=== PATIENT | female | born 1960 | race Caucasian/White ===

== ENCOUNTER 2023-09-26 08:03 | Outpatient (AMB) | payer BC, SELFPAY ==
--- OUTSIDE RECORDS SUMMARY | 2023-09-26 08:05 | XMS_ITS | Continuity of Care Document ---
Author Name Unknown Organization [facility] Address [address] [place] [address]- Care Team Providers Care Lead Generation Marketing Manager Name Role Phone Mckenzie Lr DO Primary Care Physician [phone] Encounter 08/07/20 - 08/17/20 [facility] [address] [place] [address]- Discharge Disposition: GOALS MET Allergies, Adverse Reactions, Alerts Substance Reaction Severity Status codeine Active penicillin Active traMADol Tramadol Active nitroglycerin 1 Active 1causes bradycardia Medications acetaminophen 325 mg oral tablet 650 mg, By Mouth, Every 6 hours, May take OTC, follow directions on bottle, not to exceed 4000 mg/day, Refills 0, Maintenance, 08/06/20 7:11:00 EST, Partial fill upon patient request if the prescription is for a schedule II opioid drug. Start Date: 08/06/20 Status: Ordered Aspirin Tablet 325 mg, By Mouth, 2 times a day, Refills 0, Maintenance, 02/20/20 7:15:00 EDT Start Date: 02/20/20 Status: Ordered celecoxib 200 mg oral capsule 1 capsule = 200 mg, By Mouth, Daily, 0 Refills, Maintenance, 02/20/20 7:16:00 EDT, Capsule Start Date: 02/20/20 Status: Ordered Colace Capsule 100 mg, 1, capsule, By Mouth, 2 times a day, Refills 0, Maintenance, 02/20/20 7:16:00 EDT Start Date: 02/20/20 Status: Ordered Lorazepam = 1 mg, By Mouth, Daily at bedtime, PRN Sleep, 0 Refills, Maintenance, 01/26/16 12:51:39 Start Date: 01/26/16 Status: Ordered Maalox Plus Liquid 30 mL, By Mouth, Every 4 hours, PRN Other, Heartburn, 0 Refills, Maintenance, 02/21/20 9:25:00 EDT,Suspension Start Date: 02/21/20 Status: Ordered Milk of Magnesia Liquid 30 mL, By Mouth, Daily, PRN Constipation, 0 Refills, Maintenance, 02/20/20 7:16:00 EDT, Suspension Start Date: 02/20/20 Status: Ordered MiraLax Powder 1 pack/packet = 17 Gm, By Mouth, Daily, 0 Refills, Maintenance, 02/20/20 7:16:00 EDT, Powder Start Date: 02/20/20 Status: Ordered ondansetron 4 mg oral tablet 1 tablet = 4 mg, By Mouth, Every 6 hours, PRN Nausea & Vomiting, # 20 tablet, 0 Refills, Maintenance, 02/20/20 7:10:00 EDT, Tablet, [facility], 162, cm, 02/20/20 4:17:00 EDT, Height, 82.8, kg, 02/19/20 7:08:00 EDT, Dry Weight Start Date: 02/20/20 Status: Ordered pantoprazole 40 mg oral delayed release tablet = 40 mg, By Mouth, Daily, 0 Refills, Maintenance, 02/20/20 7:16:00 EDT, EC Tablet Start Date: 02/20/20 Status: Ordered senna 187 mg oral tablet 1 tablet = 8.6 mg, By Mouth, Daily at bedtime, 0 Refills, Maintenance, 02/20/20 7:16:00 EDT, Tablet Start Date: 02/20/20 Status: Ordered
--- OUTSIDE RECORDS SUMMARY | 2023-09-26 08:05 | XMS_ITS | Continuity of Care Document ---
Author Name Unknown Organization [facility] ter Address [address] [place] [address]- Care Team Providers Care Diagnostic Cardiac Sonographer Name Role Phone Mckenzie Lr DO Primary Care Physician Encounter [facility] [place] Date(s): 07/24/20 - 08/29/[address] [address]- Attending Physician: Karan Tay MD Admitting Physician: Karan Tay MD Referring Physician: Karan Tay MD Allergies, Adverse Reactions, Alerts Substance Reaction Severity [...] 0 Refills, Maintenance, 02/20/20 7:10:00 EDT, Tablet, [facility], 162, cm, 02/20/20 4:17:00 [...]
--- OUTSIDE RECORDS SUMMARY | 2023-09-26 08:05 | XMS_ITS | Continuity of Care Document ---
Author Name Unknown Organization [facility] Address [address] [place] [address]- Care Team Providers Care White Kid Buffer Name Role Phone Mckenzie Lr DO Primary Care Physician [phone] Encounter 02/22/20 - 03/09/20 [facility] [address] [place] [address]- [facility] Discharge Disposition: GOALS MET Allergies, Adverse Reactions, Alerts Substance Reaction Severity Status codeine Active penicillin Active nitroglycerin 1 Active traMADol Tramadol Active 1causes bradycardia Medications Aspirin Tablet 325 mg, By Mouth, 2 [...] 0 Refills, Maintenance, 02/20/20 7:10:00 EDT, Tablet, [facility], 162, cm, 02/20/20 4:17:00 EDT, [...] EDT, Tablet Start Date: 02/20/20 Status: Ordered Social History Social History Type Response Sex Female
--- OUTSIDE RECORDS SUMMARY | 2023-09-26 08:05 | XMS_ITS | Continuity of Care Document ---
Author Name Unknown Organization [facility] Address [address] [place] [address] [place] [address]- Care Team Providers Care Salesforce Specialist Name Role Phone Mckenzie Lr DO Primary Care Physician Encounter 11/24/22 - 12/01/22 [facility] [address], [address] [place] [address]- Attending Physician: Mckenzie Lr DO Admitting Physician: Mckenzie Lr DO Referring Physician: Mckenzie Lr DO Allergies, Adverse Reactions, Alerts Substance Reaction Severity [...] 0 Refills, Maintenance, 02/20/20 7:10:00 EDT, Tablet, [facility], 162, cm, 02/20/20 4:17:00 [...] EDT, Tablet Start Date: 02/20/20 Status: Ordered Results Radiology Reports * Exam Date Time Procedure Performing Provider Status 11/24/22 10:43 AM MM Digital Mammo Screening Bon Valenzuela A; Auth (Verified) Notes: (MM Digital Mammo Screening) Reason For Exam: z12.31 screening RESULT: MM Digital Mammo Screening PROCEDURE: MM Digital Mammo Screening INDICATION: Screening for breast cancer. No known palpable abnormalities. COMPARISON: Multiple priors, most recent screening mammogram 10/30/2019 TECHNIQUE: Full-field digital CC and MLO 3D tomosynthesis images of both breasts were acquired. Computer-aided detection (CAD) was utilized in the interpretation of this study. DENSITY: The breast tissue contains scattered areas of fibroglandular density. FINDINGS: No suspicious masses, suspicious microcalcifications, or areas of architectural distortion are seen in either breast to suggest malignancy. Stable postprocedural changes in the anterolateral left breast. IMPRESSION: No mammographic evidence of malignancy. RECOMMENDATION: Annual mammographic screening BI-RADS: 2 (Benign) Lay letter mailed to patient I have personally reviewed the images and I agree with this report. WSN: [id number] Ordering Physician: Mckenzie Lr DO Dictated By: Annika Robles MD Dictated Date/Time: 11/24/22 2:39 pm Reviewed By: Rony Guan MD Signed By: Rony Guan MD Signed Date/Time: 11/24/22 2:44 pm Transcribed By: GIL Donor Services Technician Date/Time: 11/24/22 2:07 pm Birads: MG Breast Screening * BHSPowerscribe , CIS S: TRANSCRIBE Annika Robles MD: SIGN Rony Guan MD: VERIFY Event Display: Result: Authored Date: [id number] PROCEDURE: MM Digital Mammo Screening INDICATION: Screening for breast cancer. No known palpable abnormalities. COMPARISON: Multiple priors, most recent screening mammogram 10/30/2019 TECHNIQUE: Full-field digital CC and MLO 3D tomosynthesis images of both breasts were acquired. Computer-aided detection (CAD) was utilized in the interpretation of this study. DENSITY: The breast tissue contains scattered areas of fibroglandular density. FINDINGS: No suspicious masses, suspicious microcalcifications, or areas of architectural distortion are seen in either breast to suggest malignancy. Stable postprocedural changes in the anterolateral left breast. IMPRESSION: No mammographic evidence of malignancy. RECOMMENDATION: Annual mammographic screening BI-RADS: 2 (Benign) Lay letter mailed to patient I have personally reviewed the images and I agree with this report. WSN: [id number] Ordering Physician: Mckenzie Lr DO Dictated By: Annika Robles MD Dictated Date/Time: 11/24/22 2:39 pm Reviewed By: Rony Guan MD Signed By: Rony Guan MD Signed Date/Time: 11/24/22 2:44 pm Transcribed By: GIL Donor Services Technician Date/Time: 11/24/22 2:07 pm Birads: Patient Care team information Care Team Personnel Name: Mckenzie Lr DO Position: [facility] Outreach Member Role: PCP Address: Address: [address] [place] [address]- Care Team Related Persons Name: MICKEY CUNHA Name: ISAIAH ROMEO Address: [place] [address] Name: LELAND MONTEMAYOR
--- OUTSIDE RECORDS SUMMARY | 2023-09-26 08:05 | XMS_ITS | Continuity of Care Document ---
Author Name Unknown Organization [facility] ter Address [address] [place] [address]- Care Team Providers Care Director Medical Economics Name Role Phone Mckenzie Lr DO Primary Care Physician [phone] [id number] Date[facility] - 02/21/[address] [address]- [facility] Discharge Disposition: A-Transfer VNA/Home Health Attending Physician: Karan Tay MD Admitting Physician: Karan Tay MD Referring Physician: Karan Tay MD Allergies, Adverse Reactions, Alerts Substance Reaction Severity Status codeine Active penicillin Active nitroglycerin 1 Active traMADol Tramadol Active 1causes bradycardia Medications acetaminophen-HYDROcodone 325 mg-5 mg oral tablet See Instructions, PRN Pain , Moderate, Take 1-2 tablet By Mouth Every 4 hours as needed for pain, #84 tablet, 0 Refills, Acute 02/27/20 7:14:00 EDT, 02/20/20 7:13:00 EDT, Tablet, [facility], Partial fill upon patient request, Take 1-2... Start Date: 02/20/20 Stop Date: 02/27/20 Status: Ordered Aspirin Tablet 325 mg, By [...] 9:25:00 EDT,Suspension Start Date: 02/21/20 Status: Ordered meclizine 12.5 mg oral tablet 1 tablet = 12.5 mg, By Mouth, 3 times a day, PRN Dizziness, for 7 days, # 21 tablet, 0 Refills, Acute 02/28/20 9:23:00 EDT, 02/21/20 9:23:00 EDT, Tablet, [facility], 162, cm, 02/21/20 7:19:00 EDT, Height, 82.8, kg, 02/19/20 7:08:00 EDT,... Start Date: 02/21/20 Stop Date: 02/28/20 Status: Ordered Milk of Magnesia Liquid 30 [...] 0 Refills, Maintenance, 02/20/20 7:10:00 EDT, Tablet, [facility], 162, cm, 02/20/20 4:17:00 EDT, Height, [...] Exam Date Time Procedure Performing Provider Status 02/19/20 10:42 PM Knee 1 or 2 Views Left Kellee Carias ; Vy (Verified) Notes: (Knee 1 or 2 Views Left) Reason For Exam: Postop RESULT: Knee 1 or 2 Views Left Knee 1 or 2 Views Left Reason: Postop; Clinical Question(s): Other:; Implant Position; Special Instructions: Do today at 2200, No flexed knee in the lateral position. Keep leg straight; 2 Views COMPARISON: None. FINDINGS: Status post total left knee arthroplasty. Distal femoral and proximal tibial components are well-positioned without complication. Expected postsurgical soft tissue changes. Surgical drain terminates in the suprapatellar region. IMPRESSION: Total left knee arthroplasty without complication. WSN: [id number] Ordering Physician: Eliecer Cho Dictated By: Chon Chiu DO Dictated Date/Time: 02/19/20 11:00 p Reviewed By: Chon Chiu DO Signed By: Chon Chiu DO Signed Date/Time: 02/19/20 11:00 pm Transcribed By: GIL Transcribed Date/Time: 02/19/20 11:00 pm Vital Signs Most recent to oldest [Reference Range]: 1 2 3 Height 162 cm (02/21/20 3:35 PM) 162 cm (02/21/20 11:00 AM) 162 cm (02/21/20 7:00 AM) Weight 82.8 kg (02/19/20 10:47 AM) 82.8 kg (02/19/20 6:50 AM) Oxygen Saturation [94-100 %] 98 % (02/21/20 3:35 PM) 100 % (02/21/20 11:00 AM) 97 % (02/21/20 7:00 AM) Pulse Rate [55-90 bpm] 70 bpm (02/21/20 3:35 PM) 61 bpm (02/21/20 11:00 AM) 63 bpm (02/21/20 7:00 AM) Body Mass Index [18.5-24.99] 31.55 *>HHI* (02/19/20 10:47 AM) 31.55 *>HHI* (02/19/20 6:50 AM) Blood Pressure [90-138/55-84 mm Hg] 102/55mm Hg (02/21/20 3:35 PM) 110/52mm Hg (02/21/20 11:00 AM) 90/57mm Hg (02/21/20 7:00 AM) Respiratory Rate [16-30 br/min] 18 br/min (02/21/20 3:35 PM) 16 br/min (02/21/20 12:23 PM) 18 br/min (02/21/20 11:00 AM) Temperature [96.8-100.4 DegF] 98.1 DegF (02/21/20 3:35 PM) 98.1 DegF (02/21/20 11:00 AM) 98.1 DegF (02/21/20 7:00 AM) Mode of Delivery (Oxygen) Room air (02/21/20 3:35 PM) Room air (02/21/20 11:00 AM) Room air (02/21/20 7:00 AM) Blood pressure sites Arm, right (02/21/20 3:35 PM) Arm, right (02/21/20 11:00 AM) Arm, right (02/21/20 7:00 AM) Temperature Route Oral (02/21/20 3:35 PM) Oral (02/21/20 11:00 AM) Oral (02/21/20 7:00 AM) Dry Weight 82.8 kg (02/19/20 6:50 AM) Weight Obtained Via Standing scale (02/19/20 6:50 AM) Dry Weight Obtained Via Standing scale (02/19/20 6:50 AM) Social History Social History Type Response Sex Female
--- OUTSIDE RECORDS SUMMARY | 2023-09-26 08:05 | XMS_ITS | Continuity of Care Document ---
Author Name Unknown Organization [facility] ter Address [address] [place] [address]- Care Team Providers Care Ssas Developer Name Role Phone Mckenzie Lr DO Primary Care Physician [phone] [id number] Date(s): 02/19/20 - 03/20/[address] [address]- [facility] Attending Physician: Not on Staff, Attending MD Admitting Physician: Not on Staff, Admitting MD Referring Physician: Not on Staff, Referring MD Allergies, Adverse Reactions, Alerts Substance Reaction [...] 0 Refills, Maintenance, 02/20/20 7:10:00 EDT, Tablet, [facility], 162, cm, 02/20/20 4:17:00 [...]
--- OUTSIDE RECORDS SUMMARY | 2023-09-26 08:05 | XMS_ITS | Continuity of Care Document ---
Author Name Unknown Organization [facility] ter Address [address] [place] [address]- Care Team Providers Care Heritage Consultant Name Role Phone Mckenzie Lr DO Primary Care Physician [phone] Encounter [facility] [place] [place] Date(s): 02/11/20 - 03/12/[address] [address]- [facility] Attending Physician: Darcie Crews Admitting Physician: Darcie Crews Referring Physician: AdmtrDarcie Allergies, Adverse Reactions, Alerts Substance Reaction Severity [...] 0 Refills, Maintenance, 02/20/20 7:10:00 EDT, Tablet, [facility], 162, cm, 02/20/20 4:17:00 [...]
--- OUTSIDE RECORDS SUMMARY | 2023-09-26 08:06 | XMS_ITS | Continuity of Care Document ---
Author Name Unknown Organization [facility] ter Address [address] [place] [address]- Care Team Providers Care Animal Caretaker Name Role Phone Mckenzie Lr DO Primary Care Physician [phone] Encounter [facility] [place] Date(s): 07/30/20 - 08/29/[address] [address]- Attending Physician: Darcie Crews Admitting Physician: Darcie Crews Referring Physician: AdmtrDarcie Allergies, Adverse Reactions, Alerts Substance Reaction Severity Status codeine Active penicillin Active nitroglycerin 1 Active traMADol Tramadol Active 1causes bradycardia Medications acetaminophen 325 mg [...] 0 Refills, Maintenance, 02/20/20 7:10:00 EDT, Tablet, [facility], 162, cm, 02/20/20 4:17:00 EDT, [...]
--- OUTSIDE RECORDS SUMMARY | 2023-09-26 08:06 | XMS_ITS | Continuity of Care Document ---
Author Name Unknown Organization [facility] ter Address [address] [place] [address]- Care Team Providers Care Gold Plater Name Role Phone Mckenzie Lr DO Primary Care Physician Encounter [facility] [place] [facility] [id number] Date(s): 08/26/19 - 08/27/[address] [address]- [facility] Discharge Disposition: A-D/C Home Attending Physician: Lyndon Ballesteros MD Admitting Physician: Lyndon Ballesteros MD Referring Physician: Not on Staff, Referring MD Allergies, Adverse Reactions, Alerts Substance Reaction Severity Status codeine Active penicillin Active nitroglycerin 1 Active traMADol Tramadol Active 1causes bradycardia Medications Celexa = 20 mg, By Mouth, Daily, 0 Refills, Maintenance, 01/26/16 12:51:52 Start Date: 01/26/16 Status: Ordered Lorazepam = 1 mg, By Mouth, Daily at bedtime, PRN Sleep, 0 Refills, Maintenance, 01/26/16 12:51:39 Start Date: 01/26/16 Status: Ordered Vital Signs Most recent to oldest [Reference Range]: 1 2 3 Oxygen Saturation [94-100 %] 99 % (08/27/19 1:19 AM) 98 % (08/26/19 11:43 PM) 98 % (08/26/19 10:07 PM) Pulse Rate [55-90 bpm] 72 bpm (08/27/19 1:19 AM) 75 bpm (08/26/19 11:43 PM) 70 bpm (08/26/19 10:07 PM) Blood Pressure [90-138/55-84 mm Hg] 114/70mm Hg (08/27/19 1:19 AM) 139/89mm Hg *H* (08/26/19 11:43 PM) 153/91mm Hg *H* (08/26/19 10:07 PM) Respiratory Rate [16-30 br/min] 16 br/min (08/27/19 1:19 AM) 18 br/min (08/26/19 11:43 PM) 18 br/min (08/26/19 10:07 PM) Temperature [96.8-100.4 DegF] 98.3 DegF (08/26/19 10:07 PM) 97.9 DegF (08/26/19 6:19 PM) Mode of Delivery (Oxygen) Room air (08/27/19 1:19 AM) Room air (08/26/19 11:43 PM) Room air (08/26/19 10:07 PM) Blood pressure sites Arm, left (08/27/19 1:19 AM) Arm, left (08/26/19 11:43 PM) Arm, left (08/26/19 10:07 PM) Temperature Route Oral (08/26/19 10:07 PM) Oral (08/26/19 6:19 PM) Social History Social History Type Response Sex Female
--- OUTSIDE RECORDS SUMMARY | 2023-09-26 08:06 | XMS_ITS | Continuity of Care Document ---
Author Name Unknown Organization [facility] ter Address [address] [place] [address]- Care Team Providers Care Oil Winterizer Name Role Phone Be Mckenzie DELATORRE Primary Care Physician Encounter [facility] [place] Date(s): 08/05/20 - 08/06/[address] [address] Discharge Disposition: A-Transfer VNA/Home Health Attending Physician: [...] opioid drug. Start Date: 08/06/20 Status: Ordered Acetaminophen Tablet 650 mg, Tablet, By Mouth, 08/06/20 9:00:00 EST Start Date: 08/06/20 Stop Date: 08/06/20 Status: Completed Aspirin Tablet 325 mg, By Mouth, 2 [...] days, # 21 tablet, 0 Refills, Acute 08/13/20 7:12:00 EST, 08/06/20 7:12:00 EST, Tablet, [facility], Partial fill upon patient request if the prescription is for a schedule... Start Date: 08/06/20 Stop Date: 08/13/20 Status: Ordered Milk of Magnesia Liquid 30 mL, By Mouth, Daily, PRN Constipation, 0 Refills, Maintenance, 02/20/20 7:16:00 EDT, Suspension Start Date: 02/20/20 Status: Ordered MiraLax Powder 1 pack/packet = 17 Gm, By Mouth, Daily, 0 Refills, Maintenance, 02/20/20 7:16:00 EDT, Powder Start Date: 02/20/20 Status: Ordered morphine 15 mg oral tablet, immediate release See Instructions, PRN Pain , Moderate, Take 0.5-1 tablet By Mouth Every 4 hours as needed, # 42 tablet, 0 Refills, Acute 08/13/20 7:11:00 EST, 08/06/20 7:11:00 EST, Tablet, [facility], Partial fill upon patient request if the prescriptio... Start Date: 08/06/20 Stop Date: 08/13/20 Status: Ordered MorPHINE Immediate Release Tablet 7.5 mg, Tablet, By Mouth, Every 4 hours, PRN for Pain , Moderate, Routine, 08/05/20 19:36:00 EST Start Date: 08/05/20 Stop Date: 08/12/20 Status: Ordered ondansetron 4 mg oral tablet 1 tablet = 4 mg, By Mouth, Every 6 hours, PRN Nausea & Vomiting, # 20 tablet, 0 Refills, Maintenance, 02/20/20 7:10:00 EDT, Tablet, [facility], 162, cm, 02/20/20 4:17:00 [...] Exam Date Time Procedure Performing Provider Status 08/05/20 10:20 PM Knee 1 or 2 Views Right Ly Andino; Auth (Verified) Notes: (Knee 1 or 2 Views Right) Reason For Exam: Postop RESULT: Knee 1 or 2 Views Right Knee 1 or 2 Views Right, Reason: Postop; Clinical Question(s): Other:; Implant Position; Special Instructions: Do today at 2200, No flexed knee in the lateral position. Keep leg straight; 2 Views COMPARISON: None. FINDINGS: Status post total right knee arthropathy. Distal femoral and proximal tibial cemented components are well-positioned without complication. Expected postsurgical soft tissue changes. A surgical drain terminates in the suprapatellar region. IMPRESSION: Total right knee arthroplasty without complication. WSN: [id number] Ordering Physician: Eliecer Cho Dictated By: Chon Chiu DO Dictated Date/Time: 08/05/20 10:28 p Reviewed By: Chon Chiu DO Signed By: Chon Chiu DO Signed Date/Time: 08/05/20 10:28 pm Transcribed By: GIL Transcribed Date/Time: 08/05/20 10:27 pm Vital Signs Most recent to oldest [Reference Range]: 1 2 3 4 Height 162.56 cm (08/06/20 10:45 AM) 162.56 cm (08/06/20 6:44 AM) 162.56 cm (08/06/20 3:59 AM) Weight 82 kg (08/05/20 10:45 AM) 82 kg (08/05/20 7:27 AM) Oxygen Saturation [94-100 %] 100 % (08/06/20 10:45 AM) 97 % (08/06/20 6:44 AM) 97 % (08/06/20 3:59 AM) Pulse Rate [55-90 bpm] 78 bpm (08/06/20 10:45 AM) 72 bpm (08/06/20 6:44 AM) 76 bpm (08/06/20 3:59 AM) Body Mass Index [18.5-24.99] 31.03 *>HHI* (08/05/20 10:45 AM) 31.03 *>HHI* (08/05/20 7:27 AM) Blood Pressure [90-138/55-84 mm Hg] 129/80mm Hg (08/06/20 10:45 AM) 108/66mm Hg (08/06/20 6:44 AM) 110/65mm Hg (08/06/20 3:59 AM) Respiratory Rate [16-30 br/min] 18 br/min (08/06/20 1:43 PM) 18 br/min (08/06/20 10:45 AM) 20 br/min (08/06/20 9:41 AM) 20 br/min (08/06/20 9:41 AM) Temperature [96.8-100.4 DegF] 98.1 DegF (08/06/20 10:45 AM) 98.5 DegF (08/06/20 6:44 AM) 97.6 DegF (08/06/20 3:59 AM) Liters per Minute 6 L/min (08/05/20 1:45 PM) Mode of Delivery (Oxygen) Room air (08/06/20 10:45 AM) Room air (08/06/20 6:44 AM) Room air (08/06/20 3:59 AM) Blood pressure sites Arm, right (08/06/20 3:59 AM) Arm, right (08/06/20 12:36 AM) Arm, right (08/05/20 6:49 PM) Temperature Route Oral (08/06/20 10:45 AM) Oral (08/06/20 6:44 AM) Oral (08/06/20 3:59 AM) Dry Weight 82 kg (08/05/20 7:27 AM)
[2023-09-26 08:12] VITALS: BP 110/70; PULSE 81; TEMP 36.6; O2SAT 98; BMI 34.5
--- NOTE | 2023-09-26 08:12 | MHC.OFFWIV ---
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) Intake Note: pt is here for c.o possible uti, states she feels urgency, and dysuria since monday Patient Tobacco Use Status: Never used Tobacco Allergies codeine [CODEINE] Allergy (Unknown, Verified 09/26/23 08:22) UNKNOWN Penicillins [PENICILLINS] Allergy (Unknown, Verified 09/26/23 08:22) ANAPHYLAXIS tramadol [TRAMADOL] Adverse Reaction (Unknown, Verified 09/26/23 08:22) N/V Medication List - Last Reconciled 09/26/23 by Harpreet Morrow MD lorazepam 0.5 mg PO DAILY Do you need a note to return to daycare/school/sports/work: No 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 Reports symptoms of increased frequency of urination, burning on urination and discomfort in the suprapubic area. Symptoms started in the past few days. No fevers or chills. No nausea or vomiting. PFSH Social History Patient Tobacco Use Status: Never used Tobacco Physical Exam Vital Signs: Last Vital Signs Temp 97.9 F 09/26/23 08:12 Pulse 81 09/26/23 08:12 BP 110/70 09/26/23 08:12 Pulse Ox 98 09/26/23 08:12 BMI result Body Mass Index 34.5 General: Yes bladder normal to palpation and Yes no CVA tenderness Bimanual exam- vagina & uterus: bladder normal to palpation Back/Spine/Pelvis Back: no CVA tenderness Results AMB Urinalysis, Automated UA Leukoctes 500 Mina/uL Last Edit by Luna Jett CMA on 09/26/23 08:20 UA Nitrite Negative Last Edit by Luna Jett CMA on 09/26/23 08:20 UA Urobilinogen 0.2 mg/dL Last Edit by Luna Jett CMA on 09/26/23 08:20 UA Protein 15 mg/dL Last Edit by Luna Jett CMA on 09/26/23 08:20 UA pH 6.0 Last Edit by Luna Jett, [employer] on 09/26/23 08:20 UA Blood 200 [place]/uL Last Edit by Luna Jett, UGO on 09/26/23 08:20 UA Specific Hatch 1.010 Last Edit by Luna Jett, UGO on 09/26/23 08:20 UA Ketone Negative Last Edit by Luna Jett, UGO on 09/26/23 08:20 UA Bilirubin 0 mg/dL Last Edit by Luna Jett, [employer] on 09/26/23 08:20 UA Glucose 0 mg/dL Last Edit by Luna Jett, UGO on 09/26/23 08:20 Results Reviewed Results Reviewed: Laboratory Last Values Urine pH (Auto) 6.0 09/26/23 08:18 Specific Hatch (Auto) 1.010 09/26/23 08:18 Urine Protein (Auto) 15 mg/dL 09/26/23 08:18 Glucose (UA)(Auto) 0 mg/dL 09/26/23 08:18 Urine Ketones (Auto) Negative 09/26/23 08:18 Urine Blood (Auto) 200 [place]/uL 09/26/23 08:18 Urine Nitrite (Auto) Negative 09/26/23 08:18 Urine Bilirubin (Auto) 0 mg/dL 09/26/23 08:18 Urine Urobilinogen (Auto) 0.2 mg/dL 09/26/23 08:18 Leukocyte Esterase (Auto) 500 [place]/uL 09/26/23 08:18 Assessment & Plan Assessment & Plan (1) Urinary tract infection: Code(s): N39.0 - Urinary tract infection, site not specified Plan: Take antibiotics and Pyridium as directed. Increase fluid intake. If symptoms of burning persist, new onset of fever or lower back pain, to follow-up at the clinic. Orders: Orders AMB Urinalysis Automated Today Z13.9 - Encounter for screening, unspecified Coding Level of Care Code Est Pt Level 3 (99802) Diagnoses Urinary tract infection N39.0
== END 2023-09-26 08:26 | disposition home or self-care (01) ==
PROVIDERS: Visit Provider Internal Medicine
DX: N39.0 Urinary tract infection, site not specified (principal); R30.0 Dysuria
CPT/HCPCS: 81003; 99213

== ENCOUNTER 2024-08-12 10:48 | Outpatient (AMB) | payer BC, SELFPAY ==
--- NOTE | 2024-08-12 11:10 | MHC.OFFWIV ---
Intake Vital Signs 08/12/24 11:11 Weight 204 lb BP 118/70 Blood Pressure Location Rt brachial Position Sitting Pulse 72 Pulse Source Pulse Oximeter Temp 97.8 F Temp Source Oral Pulse Oximetry (%) 98 Oxygen Delivery Method Room Air Intake Visit Reasons: EP ? UTI Intake Note: Patient here frequent urination that has been present for a few weeks. Patient Tobacco Use Status: Never used Tobacco Allergies codeine [CODEINE] Allergy (Unknown, Verified 08/12/24 11:11) UNKNOWN Penicillins [PENICILLINS] Allergy (Unknown, Verified 08/12/24 11:11) ANAPHYLAXIS tramadol [TRAMADOL] Adverse Reaction (Unknown, Verified 08/12/24 11:11) N/V Do you need a note to return to daycare/school/sports/work: No HPI HPI Comments History of Present Illness Details History of Present Illness The patient is a 63-year-old female presenting with frequent urination. She reports that this issue started a couple of weeks ago, noting an increase in the frequency of urination without accompanying dysuria. There is no history of diabetes, and she denies experiencing fevers, dizziness, unintentional weight loss, lightheadedness, or blurry vision. The patient voluntarily increased her fluid intake, it wasn't due to excessive thirst. She also notes the recent onset of lower back pain that began today. The pain was severe enough to wake her during the night but does not resemble her past experiences with kidney stones. She has a history of kidney stones but does not believe the current symptoms align with that condition. Physical Exam General: Cooperative, healthy appearing, comfortable, no acute distress and well developed Orientation: Patient oriented x3 Limitations: No limitations Head: Normal to inspection Ears: Hearing grossly normal bilaterally Nose: Normal external nose present Face and sinus: Normal facial exam Eyes: Appearance normal, both eyes and all related structures Neck: Normal visual inspection and Yes full ROM Respiratory: Normal respiratory effort and able to speak in complete sentences. : negative CVA bilaterally Skin: No rashes or lesions noted Neuro: Patient oriented x3 Extremities: Normal to inspection PFSH Social History Patient Tobacco Use Status: Never used Tobacco Review of Systems Const All systems reviewed & are unremarkable except as noted in HPI and below Physical Exam Vital Signs: Last Vital Signs Temp 97.8 F 08/12/24 11:11 Pulse 72 08/12/24 11:11 BP 118/70 08/12/24 11:11 Pulse Ox 98 08/12/24 11:11 Oxygen Delivery Method Room Air 08/12/24 11:11 Assessment & Plan Assessment & Plan (1) Polyuria: Code(s): R35.89 - Other polyuria Plan: Plan - UA neg for infection or blood. Conduct a urine culture to investigate the presence of a urinary tract infection UTI. - Perform a capillary blood glucose test to rule out diabetes, in office POC was 95. - Prescribe antibiotics to treat symptoms as POC was 95, taking in mind allergy to PCN. - Advise monitoring, and if the lumbar pain intensifies while on antibiotics, recommend the patient visits the emergency department to evaluate for possible nephrolithiasis. Patient was informed and verbally consented to the use of an ambient scribe for clinic note documentation during this visit. Orders: Orders Urine Culture Today N39.0 - Urinary tract infection, site not specified Medications: New sulfamethoxazole-trimethoprim 800-160 mg (Bactrim DS) 1 tab PO Q12H 10 tabs 0RF Coding Level of Care Code Est Pt Level 3 (44829) Diagnoses Polyuria R35.89
[2024-08-12 11:11] VITALS: BP 118/70; PULSE 72; TEMP 36.6; O2SAT 98
== END 2024-08-12 11:34 | disposition home or self-care (01) ==
PROVIDERS: Visit Provider Physician Assistant
DX: Z13.9 Encounter for screening, unspecified (principal); R35.89 Other polyuria

== ENCOUNTER 2024-08-12 10:48 | Outpatient (REF) | payer BC, SELFPAY | END 2024-08-12 10:49 | disposition home or self-care (01) | LOC: HO.LAB 10:48 | DX: N39.0 Urinary tract infection, site not specified (principal) | CPT/HCPCS: 82948; 87086 ==